=== PATIENT | female | born 1960 | race Caucasian/White ===

== ENCOUNTER 2023-12-22 08:13 | Emergency (ER) | payer BC, SELFPAY ==
[2023-12-22 08:14] VITALS: BP 150/99
--- NOTE | 2023-12-22 08:40 | ED.GENMED ---
History of Present Illness
General
Chief Complaint: Abdominal Pain
Time Seen by Provider: 12/22/23 08:20
History of Present Illness
History of Present Illness:
63-year-old female presents to the emergency department for evaluation of lower abdominal pain for the past 5 days. Pain is associated with chills nausea as well as small caliber bowel movements. Feels comparable to prior bouts of diverticulitis.
No vomiting. No history of abdominal surgeries
Past History
Past History
ED Past Medical History: Cancer (Breast), Other (Migraine headaches) and Other (diverticulitis)
ED Past Surgical History: Gynecological (breast lumpectomy)
Social History
Tobacco: Non-smoker
Personal:
Review of Systems
Review of Systems
Allergies reviewed?: Yes
All Other Systems: ROS reviewed and negative except as documented in HPI and ROS
Phy Exam
Physical Exam
Physical Exam:
GEN: Well appearing, NAD, WDWN
Eyes: PERRLA, EOMs intact, no scleral icterus
HENT: NCAT, oral mucosa moist
Lungs: CTAB, no wheezes, rales, rhonchi, normal chest wall excursion
Cardiac: RRR, no M/R/G, no peripheral edema. Radial pulses 2+ bilat
Abdomen: Soft, minimal suprapubic tenderness, no rigidity or peritoneal signs
Neuro: AO x 3
MSK: No gross deformity or ecchymosis. No edema.
Skin: No rashes, petechiae. Normal color, no pallor or jaundice.
Psych: Calm, cooperative, proper hygiene
Course
Orders/Labs/Results
Orders:
Orders
12/22/23 08:39
CT Abd/Pel (IV only)-DH only Urgent
Comment:
Reason For Exam: LLQ/suprapubic pain
0.9% Sodium Chloride 1000 ml [Nss] 1,000 ml IV BOLUS
Acetaminophen [Tylenol] 650 mg PO NOW STA
Ketorolac [Toradol] 15 mg IV NOW STA
12/22/23 09:07
Complete Blood Count/With Diff Urgent
Comprehensive Metabolic Panel Urgent
12/22/23 09:55
Piperacillin/Tazo 3.375 Gram [Zosyn] 3.375 gram in 50 ml IV NOW
12/22/23 10:30
Urinalysis Reflex To Culture Urgent
Date Specimen was Collected: 12/22/23
Time Specimen was Collected: 10:09
Abnormal Lab Results
12/22/23
09:07
Absolute Neuts (auto) 7.7 H 10^3/uL
(1.4-6.5)
Absolute Monos (auto) 0.8 H 10^3/uL
(0.1-0.6)
Lymphocytes % 18.2 L %
(20.5-51.1)
Glucose 102 H mg/dl
(70-99)
12/22/23 09:07
12/22/23 09:07
Vital Signs
Initial and Last Documented VS:
Initial Vital Signs
Temp Pulse Resp BP Pulse Ox
97.8 F 84 16 150/99 98
12/22/23 08:14 12/22/23 08:14 12/22/23 08:14 12/22/23 08:14 12/22/23 08:14
Last Documented Vital Signs
Temp Pulse Resp BP Pulse Ox
97.8 F 72 19 140/84 98
12/22/23 08:14 12/22/23 11:00 12/22/23 11:00 12/22/23 10:07 12/22/23 08:14
MDM/Problems Addressed
MDM/Problems Addressed:
63-year-old female presenting with abdominal pain found to have acute diverticulitis on CT scan. She is clinically stable with a nonperitoneal exam. No fever or leukocytosis. I did offer the patient mission for IV antibiotics given the past
history of diverticulitis with complications, however she declines. This is not unreasonable at this time. Strictly educated regarding importance of clear liquid diet and antibiotics, ED return parameters discussed
*Critical Care Note
Total Time (30-74mins, 75-104mins- exclusive of procedures): Not Applicable
ED Attending Note
-
Portions of this chart may have been created with voice recognition software.� Occasional wrong word or��sound alike� substitutions may have occurred due to the inherent limitations of voice recognition software.
Discharge Plan
Departure
Patient Disposition: Home (Routine Discharge)
Date of Disposition: 12/22/23
Time of Disposition: 10:42
Patient with high blood pressure during this ER visit?: No
Discharge Problem:
Acute diverticulitis
Instructions: Clear Liquid Diet, Diverticulitis (DC), Full liquid diet
Prescriptions:
New
amoxicillin-pot clavulanate 875-125 mg tablet
1 tab PO BID 10 Days Qty: 20 0RF
No Action
rosuvastatin 5 mg Tablet
15 mg PO DAILY
acetaminophen 325 mg Tablet
650 mg PO Q4HPRN PRN (Reason: mild pain/PINEDA/temp> 100.4F) Qty: 60 0RF
fluconazole 200 mg Tablet
200 mg PO MO
calcium carbonate [Calcium 500] 500 mg calcium (1,250 mg) Tablet
500 mg PO DAILY
cholecalciferol (vitamin D3) [Vitamin D3] 25 mcg (1,000 unit) Tablet
25 mcg PO DAILY
Clear Eyes Complete 0.025-0.2-0.5 % Drops
1 drp BOTH EYES QIDPRN PRN (Reason: dryness)
Referrals:
Marcin Reid DO [Family Provider] -
Activity Restrictions/Additional Instructions:
Clear liquid diet for the next 48 hours
Then progress to a full liquid diet for 24 hours
Resume normal diet if symptoms are improving after full liquids
Return to the ER if you develop worsening pain or fevers, or if your symptoms are not improving in 3 days
Interventions
Interventions:
*Risk Screen - Suicide Last Done: 12/22/23 08:50
*General Assessment Last Done: 12/22/23 08:50
*Neglect/Abuse Screening Last Done: 12/22/23 08:50
ED- Fall Risk Assessment Last Done: 12/22/23 08:50
*ED COVID-19 Vaccine History Last Done: 12/22/23 08:50
*Nursing Disposition Last Done: 12/22/23 11:12
FD-Hcspos-Ttpadvyioi Assessment Last Done: 12/22/23 08:50
Discharge Date and Time
Discharge Date/Time: 12/22/23 11:13
Print Language: GREENLANDIC
[2023-12-22 08:50] VITALS: BMI 24.3
[2023-12-22 09:04] VITALS: BP 134/94
[2023-12-22] MEDS: NSS 1000 IV (09:12)
[2023-12-22] MEDS: TYLENOL 650 MG PO (09:13)
[2023-12-22] MEDS: TORADOL 15 MG IV (09:13)
[2023-12-22 09:23] LABS: % Basophils 0.5 % (0-2); % Eosinophils 0.6 % (0-6); % Immature Granulocytes 0.4 % (0-0.5); % Lymphocytes 18.2 % (20.5-51.1); % Monocytes 7.5 % (1.7-9.3); % Neutrophils 72.8 % (42.2-75.2); Absolute Basophils 0.1 10^3/uL (0-0.2); Absolute Eosinophils 0.1 10^3/uL (0-0.7); Absolute Lymphocytes 1.9 10^3/uL (1.2-3.4); Absolute Monocytes 0.8 10^3/uL (0.1-0.6); Absolute Neutrophils 7.7 10^3/uL (1.4-6.5); Hematocrit 37.9 % (37.0-47.0); Hemoglobin 13.4 g/dL (12.0-16.0); Mean Corp Hgb Conc. 35.4 g/dL (33.0-37.0); Mean Corpuscular Hgb 30.2 pg (27.0-31.0); Mean Corpuscular Volume 85.4 fL (81.0-99.0); Mean Platelet Volume 10.1 fL (7.4-10.4); Nucleated Red Blood Cells % 0 %; Platelet Count 335 10^3/uL (130-400); Red Blood Cell Count 4.44 10^6/uL (4.20-5.40); Red Cell Dist. Width 11.6 % (11.5-14.5); White Blood Cell Count 10.6 10^3/uL (4.8-10.8)
[2023-12-22 09:33] LABS: ALT (SGPT) 14 U/L (0-35); AST (SGOT) 19 U/L (14-36); Albumin 4.3 g/dl (3.5-5.0); Alkaline Phosphatase 64 U/L (38-126); Blood Urea Nitrogen 11 mg/dl (7-17); Calcium 9.8 mg/dl (8.4-10.2); Carbon Dioxide 27 mmol/L (22-30); Chloride 100 mmol/L (98-107); Estimated Creatinine Clearance 66 ml/min; Glucose 102 mg/dl (70-99); Potassium 3.7 mmol/L (3.5-5.1); Sodium 142 mmol/L (135-145); Total Bilirubin 0.9 mg/dl (0.2-1.3); eGFR > 60.00
[2023-12-22 10:07] VITALS: BP 140/84
[2023-12-22] MEDS: ZOSYN 50 IV (10:24)
[2023-12-22 11:02] LABS: Urine Albumin Negative (Neg - Trace); Urine Bilirubin Negative (Negative); Urine Character Clear (Clear); Urine Color Yellow; Urine Glucose Negative (Negative); Urine Ketone Negative (Negative); Urine Leukocyte Negative (Negative); Urine Nitrite Negative (Negative); Urine Occult Blood Negative (Negative); Urine Urobilinogen Negative (Neg - 1+)
== END 2023-12-22 11:13 | disposition home or self-care (01) ==
LOC: EMR 08:13
PROVIDERS: Physician Assistant; EMERGENCY PHYSICIAN Emergency Medicine; FAMILY PHYSICIAN Family Medicine
DX: K57.32 Diverticulitis of large intestine without perforation or abscess without bleeding (principal); R11.0 Nausea; G43.909 Migraine, unspecified, not intractable, without status migrainosus; Z85.3 Personal history of malignant neoplasm of breast
CPT/HCPCS: 99285; 96375; 96361; 96365; 74177; 80053; 81003; 85025; Q9967

== ENCOUNTER 2024-06-21 09:01 | Emergency (ER) | payer BC, SELFPAY ==
[2024-06-21 09:11] VITALS: BP 121/82
[2024-06-21 09:29] LABS: % Basophils 0.4 % (0-2); % Eosinophils 0.3 % (0-6); % Immature Granulocytes 0.2 % (0-0.5); % Lymphocytes 27.1 % (20.5-51.1); % Monocytes 5.4 % (1.7-9.3); % Neutrophils 66.6 % (42.2-75.2); Absolute Lymphocytes 2.6 10^3/uL (1.2-3.4); Absolute Monocytes 0.5 10^3/uL (0.1-0.6); Absolute Neutrophils 6.3 10^3/uL (1.4-6.5); Hematocrit 39.8 % (37.0-47.0); Hemoglobin 13.8 g/dL (12.0-16.0); Mean Corp Hgb Conc. 34.7 g/dL (33.0-37.0); Mean Corpuscular Hgb 30.5 pg (27.0-31.0); Mean Corpuscular Volume 88.1 fL (81.0-99.0); Mean Platelet Volume 10.2 fL (7.4-10.4); Nucleated Red Blood Cells % 0 %; Platelet Count 328 10^3/uL (130-400); Red Blood Cell Count 4.52 10^6/uL (4.20-5.40); Red Cell Dist. Width 11.7 % (11.5-14.5); White Blood Cell Count 9.4 10^3/uL (4.8-10.8)
[2024-06-21 09:41] LABS: ALT (SGPT) 22 U/L (0-35); AST (SGOT) 25 U/L (14-36); Albumin 4.1 g/dl (3.5-5.0); Alkaline Phosphatase 62 U/L (38-126); Blood Urea Nitrogen 21 mg/dl (7-17); Calcium 9.9 mg/dl (8.4-10.2); Carbon Dioxide 29 mmol/L (22-30); Chloride 103 mmol/L (98-107); Glucose 113 mg/dl (70-99); Lipase 60 U/L (23-300); Potassium 4.2 mmol/L (3.5-5.1); Sodium 137 mmol/L (135-145); Total Bilirubin 0.6 mg/dl (0.2-1.3); Total Protein 6.8 g/dl (6.3-8.2); eGFR > 60.00
--- NOTE | 2024-06-21 10:28 | ED.GENMED ---
History of Present Illness
General
Chief Complaint: Abdominal Symptoms
Source: patient
Exam Limitations: none
Time Seen by Provider: 06/21/24 10:14
Nursing documentation reviewed up to this point in time: agreed with
History of Present Illness
History of Present Illness:
Patient is a 63-year-old female presents to the ER for abdominal pain. She has had intermittent abdominal pain for the past 6 days. She saw her family doctor on 4 days ago and was started on Augmentin. She however has only taken
Augmentin for 2 days and stopped it because she had diarrhea and headaches from it. Last night she had greater than 10 episodes of diarrhea. She was not sure if this was from Augmentin or if she has a virus. She does feel nauseous. She did feel
chills but no fever. This does feel similar to her diverticulitis. She denies any UTI symptoms. She reports she had her urine checked at the doctor's office last week.
Past History
Past History
ED Past Medical History: Cancer (Breast), Other (Migraine headaches) and Other (diverticulitis)
ED Past Surgical History: Gynecological (breast lumpectomy)
Social History
Tobacco: Non-smoker
Personal:
Review of Systems
Review of Systems
Allergies reviewed?: Yes
All Other Systems: ROS reviewed and negative except as documented in HPI and ROS
Constitutional: Reports chills; Denies fever or fatigue
ABD/GI: Reports abdominal pain, nausea and diarrhea; Denies vomiting
: Reports no symptoms; Denies flank pain, urgency or discharge
Musculoskeletal: Reports no symptoms
Skin: Reports no symptoms
Psychiatric: Reports no symptoms
Phy Exam
General Physical Exam
General Presentation: no apparent distress
General age: appears stated age
General Skin: warm and dry
General Habitus: normal
General Mental: alert
General Hydration: appears well hydrated
Cardiovascular Exam
Cardiovascular Exam: regular rate/rhythm, no murmur and normal peripheral pulses
Pulmonary Exam
Pulmonary Exam: lungs clear and no respiratory distress
Gastrointestinal Exam
Gastrointestinal Exam: soft and other (Nonspecific abdominal tenderness no guarding)
Neurological Exam
Neurological Exam: alert and oriented x3
Musculoskeletal Exam
Musculoskeletal Exam: full ROM
Skin Exam
Skin Exam: normal color and warm/dry
Psychiatric Exam
Psychiatric Exam: normal mood/affect
Course
Orders/Labs/Results
Orders:
Orders
06/21/24 09:21
Complete Blood Count/With Diff Urgent
Comprehensive Metabolic Panel Urgent
Lipase Urgent
06/21/24 10:44
CT Abd/pel W Iv And Oral Contr Urgent
Comment:
Reason For Exam: abd pain hx of diverticulitis
IV Insert/Care/Rem.- Treatment PRN
0.9% Sodium Chloride 1000 ml [Nss] 1,000 ml IV BOLUS
Iohexol [Omnipaque] See Protocol PO NOW STA
Ondansetron Injectable [Zofran] 4 mg IV NOW STA
06/21/24 12:07
Dicyclomine HCl [Bentyl] 20 mg IM NOW STA
06/21/24 12:08
Dicyclomine HCl [Bentyl] 20 mg .ROUTE .STK-MED ONE
06/21/24 12:17
Urinalysis Reflex To Culture Urgent
Date Specimen was Collected: 06/21/24
Time Specimen was Collected: 11:53
Urine Microscopic Reflex Cult Urgent
C DIFF [C difficile Antigen & Toxins] Urgent
ROBERTO Source: Feces/Stool
Specimen Description:
Date Specimen was Collected: 06/21/24
Time Specimen was Collected: 12:11
Norovirus by PCR Urgent
ROBERTO Source: Feces/Stool
Specimen Description:
Date Specimen was Collected: 06/21/24
Time Specimen was Collected: 12:11
Stool Culture Urgent
ROBERTO Source: Feces/Stool
Specimen Description:
Date Specimen was Collected: 06/21/24
Time Specimen was Collected: 12:11
06/21/24 14:48
Ciprofloxacin HCl [Cipro] 500 mg PO NOW STA
06/21/24 14:49
MetroNIDAZOLE [Flagyl] 500 mg PO NOW STA
Abnormal Lab Results
06/21/24 06/21/24
09:21 12:17
BUN 21 H mg/dl
(7-17)
Glucose 113 H mg/dl
(70-99)
Urine Ketones 3+ A
(Negative)
Urine Bacteria (Reflex) Few A
(Negative)
Urine Albumin (Reflex) 1+ A
(Neg - Trace)
06/21/24 09:21
06/21/24 09:21
Vital Signs
Initial and Last Documented VS:
Initial Vital Signs
Temp Pulse Resp BP Pulse Ox
97.8 F 71 16 121/82 98
06/21/24 09:11 06/21/24 09:11 06/21/24 09:11 06/21/24 09:11 06/21/24 09:11
Last Documented Vital Signs
Temp Pulse Resp BP Pulse Ox
97.8 F 66 16 121/69 98
06/21/24 09:11 06/21/24 13:45 06/21/24 13:45 06/21/24 13:45 06/21/24 13:45
Jumpbasting Facing Baster consulted with Physician
Jumpbasting Facing Baster consulted with physician?: Yes
Name of Physician Consulted: lo
MDM/Problems Addressed
Differential Diagnosis Includes:
not limited to:
Norovirus, dehydration, colitis, diverticulitis
MDM/Problems Addressed:
As documented patient is a 63-year-old female who presented with abdominal pain and diarrhea. She was treated with Augmentin by her family doctor but stopped it due to a headache. Patient presents with mild abdominal discomfort and had multiple
episodes of diarrhea last night. She is nontoxic denies any fevers and is afebrile here with a normal white count stable hemoglobin. She did a stool culture here which was negative for C. difficile negative for norovirus. Chemistry is
unremarkable . CAT scan shows thickening of the colon which extends in the proximal ascending colon to the transverse colon infectious and inflammatory allergies are likely differential considerations. With diarrhea and pain we will continue to
prescribe antibiotics. Since patient stopped Augmentin we will start Cipro Flagyl discussed very close outpatient follow-up. Patient has her own GI with whom she will follow-up with. Discussed to return if any worsening of symptoms.
*Radiology
Radiology exam reviewed: radiology read reviewed
*Pulse Oximetry
Patient hypoxic: no
*Critical Care Note
Total Time (30-74mins, 75-104mins- exclusive of procedures): Not Applicable
ED Attending Note
-
Portions of this chart may have been created with voice recognition software.� Occasional wrong word or��sound alike� substitutions may have occurred due to the inherent limitations of voice recognition software.
Discharge Plan
Departure
Patient Disposition: Home (Routine Discharge)
Date of Disposition: 06/21/24
Time of Disposition: 14:51
Patient with high blood pressure during this ER visit?: No
Condition: Fair
Covid-19: Not Applicable
Discharge Problem:
Colitis
Instructions: Diarrhea in teens and adults, [place] Diet, Colitis - Discharge instructions
Prescriptions:
New
ciprofloxacin HCl [Cipro] 500 mg tablet
500 mg PO BID Qty: 20 0RF
metronidazole 500 mg tablet
500 mg PO Q8H Qty: 30 0RF
No Action
rosuvastatin 5 mg Tablet
15 mg PO DAILY
acetaminophen 325 mg Tablet
650 mg PO Q4HPRN PRN (Reason: mild pain/PINEDA/temp> 100.4F) Qty: 60 0RF
fluconazole 200 mg Tablet
200 mg PO MO
calcium carbonate [Calcium 500] 500 mg calcium (1,250 mg) Tablet
500 mg PO DAILY
cholecalciferol (vitamin D3) [Vitamin D3] 25 mcg (1,000 unit) Tablet
25 mcg PO DAILY
Clear Eyes Complete 0.025-0.2-0.5 % Drops
1 drp BOTH EYES QIDPRN PRN (Reason: dryness)
amoxicillin-pot clavulanate 875-125 mg tablet
1 tab PO BID 10 Days Qty: 20 0RF
Referrals:
Marcin Reid DO [Family Provider] -
Activity Restrictions/Additional Instructions:
As discussed please start antibiotics. You were given the first dose here in the ER. Antibiotics were sent to her pharmacy. [place] foods over the next several days. Stay well-hydrated. Please follow-up close with your family doctor as well as
your GI doctor. Return however to the ER for any worsening of symptoms of increased pain fever chills nausea vomiting diarrhea.
Interventions
Interventions:
*Risk Screen - Suicide Last Done: 06/21/24 09:11
*General Assessment Last Done: 06/21/24 09:11
*Neglect/Abuse Screening Last Done: 06/21/24 09:11
*ED- Fall Risk Assessment Last Done: 06/21/24 10:38
*ED COVID-19 Vaccine History Last Done: 06/21/24 09:11
*Nursing Disposition Last Done: 06/21/24 15:09
NS-Vomudo-Udjnaotydh Assessment Last Done: 06/21/24 10:38
Discharge Date and Time
Discharge Date/Time: 06/21/24 15:12
Print Language: LIBYAN
[2024-06-21 10:32] VITALS: BMI 22.6
[2024-06-21 10:35] VITALS: BP 120/80
--- NOTE | 2024-06-21 10:40 | EDRN ---
Jhony Draper IMAGING ADMINISTRATOR in to see pt.
[2024-06-21] MEDS: OMNIPAQUE 50 ML PO (11:20)
[2024-06-21] MEDS: ZOFRAN 4 MG IV (12:04)
[2024-06-21] MEDS: NSS 1000 IV (12:05)
[2024-06-21] MEDS: BENTYL 20 MG IM (12:12)
[2024-06-21 12:17] VITALS: BP 130/88
[2024-06-21 12:36] LABS: Urine Albumin 1+ (Neg - Trace); Urine Bilirubin Negative (Negative); Urine Character Clear (Clear); Urine Color Yellow; Urine Glucose Negative (Negative); Urine Ketone 3+ (Negative); Urine Leukocyte Negative (Negative); Urine Nitrite Negative (Negative); Urine Occult Blood Negative (Negative); Urine Specific Gravity 1.025 (<1.030); Urine Urobilinogen Negative (Neg - 1+)
[2024-06-21 12:56] LABS: Urine Mucus Few; Urine Squamous Cell 0-2 /LPF (Few)
[2024-06-21 12:57] LABS: Urine Bacteria Few (Negative); Urine Red Blood Cell 0-2 /HPF (0-2); Urine White Cell 0-2 /HPF (0-5)
[2024-06-21 13:45] VITALS: BP 121/69
--- NOTE | 2024-06-21 14:38 | EDRN ---
Jhony Draper ARCHERY INSTRUCTOR in room w/pt at this time.
--- NOTE | 2024-06-21 14:47 | EDRN ---
Pt OOB to BR at this time.
[2024-06-21] MEDS: CIPRO 500 MG PO (15:05)
[2024-06-21] MEDS: FLAGYL 500 MG PO (15:06)
== END 2024-06-21 15:12 | disposition home or self-care (01) ==
LOC: EMR 09:01
PROVIDERS: Emergency Medicine; Nurse Practitioner; EMERGENCY PHYSICIAN Student in an Organized Health Care Education/Training Program; FAMILY PHYSICIAN Family Medicine
DX: K52.9 Noninfective gastroenteritis and colitis, unspecified (principal); Z85.3 Personal history of malignant neoplasm of breast
CPT/HCPCS: 96374; 96372; 96361; 99284; 74177; 80053; 81003; 81015; 83690; 85025; 87045; 87046; 87324; 87427; 87449; 87798; Q9967

== ENCOUNTER → 2025-01-18 09:10 | Outpatient (REF) | payer BC, SELFPAY | LOC: RAD 09:10 | PROVIDERS: ATTENDING PHYSICIAN Internal Medicine Rheumatology; FAMILY PHYSICIAN Family Medicine | DX: M81.0 Age-related osteoporosis without current pathological fracture (principal); E55.9 Vitamin D deficiency, unspecified; R29.890 Loss of height | CPT/HCPCS: 77080 ==